=== PATIENT | female | born 1975 | race Caucasian/White ===

== ENCOUNTER 2017-02-16 11:03 | Emergency (ER) | payer MEDICAID ==
[2017-02-16 11:20] VITALS: BP 111/75
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
== END 2017-02-16 12:14 | disposition home or self-care (01) ==
LOC: ER 11:03
DX: S46.912A Strain of unspecified muscle, fascia and tendon at shoulder and upper arm level, left arm, initial encounter (principal); S46.002A Unspecified injury of muscle(s) and tendon(s) of the rotator cuff of left shoulder, initial encounter; X50.3XXA Overexertion from repetitive movements, initial encounter; Y93.E9 Activity, other interior property and clothing maintenance; Y92.009 Unspecified place in unspecified non-institutional (private) residence as the place of occurrence of the external cause

== ENCOUNTER 2017-05-31 06:37 | Day surgery (SDC) | payer MEDICAID ==
[~2017-05-31 06:37] MED LIST: ACETAMINOPHEN 500 MG TABLET PO PRN; HYDROmorphone HCL 2 MG/ML VIAL IV PRN; MAG HYDROX/ALUMINUM HYD/SIMETH 30 ML UDC PO PRN; MAGNESIUM HYDROXIDE 30 ML UDC PO PRN; ONDANSETRON HCL/PF 2 MG/ML VIAL IV PRN; PROMETHAZINE HCL 25 MG in DEXTROSE 5 % IN WATER 50 ML IV PRN; RINGER'S SOLUTION,LACTATED 1,000 ML IV PRN; ZOLPIDEM TARTRATE 5 MG TABLET PO PRN; ceFAZolin SODIUM 1 GM VIAL IV PRN; diphenhydrAMINE HCL 50 MG/ML VIAL IV PRN; oxyCODONE HCL/ACETAMINOPHEN 1 TAB TABLET PO PRN
[2017-05-31] MEDS ORDERED: RINGER'S SOLUTION,LACTATED 1,000 ML IV ONE ×2 (07:09→08:15)
--- NOTE | 2017-05-31 09:25 | OR ---
Operative Report - Dictated Report Narrative: Date: 05/31/2017 Physician: Néstor Reeder M.D. Rn Emergency Room: Harvey Zazueta PA-C Preoperative diagnosis: Left Shoulder labral tear, biceps tendinopathy Postoperative diagnosis: Left Shoulder anterior labral tear, biceps tendinopathy Procedure: Left shoulder arthroscopy with anterior labral repair and open biceps tenodesis Anesthesia: General plus regional Complications: None Estimated blood loss: Minimal Specimens: None Retained implants: [employer] biceptor 7 x 25 mm peek interference screw, [employer] 2.3 mm bio Raptor peek suture anchor 2 Drains: None Indications: Mrs. Hyatt Is a 41 year-old female who has been followed in my clinic with complaints of shoulder pain consistent anterior shoulder pain with labral and biceps pathology. Physical exam and diagnostic imaging were consistent with his complaints and concern for labral tear and biceps tendinopathy. Conservative measures have failed including, but not limited to, passage of time , activity modification, medications, physical therapy/home exercise program, or injections. The risks, benefits, and alternatives were discussed in clinic. The risks being , bleeding, infection, blood clots, nerve, tendon, ligament, blood vessel injury, persistent pain, arthrosis, stiffness, need for prolonged therapy, need for additional procedures, and persistent symptoms. Consent was obtained in the clinic. Procedure: After marking the correct extremity in the preoperative holding area, a timeout was performed in the operating room. IV antibiotics consisting of Ancef were administered prior to the procedure. A general followed by regional anesthetic was induced by the nurse counter waiter per my request. This was in the supine position, then the patient was transitioned to a beachchair position with all bony prominences well-padded, head in neutral, the nonoperative arm well supported, and the legs padded with SCDs in place. The operative shoulder was then prepped and draped in a standard sterile fashion. Preoperatively the shoulder had full passive range of motion, and no gross instability. After marking out the bony landmarks, saline was infused into the joint through a posterior lateral portal site. A baldev incision was made, and the blunt trocar and cannula was introduced into the shoulder joint. An accessory portal was placed in the rotator cuff interval using a spinal needle for guidance. Upon initial evaluation, the biceps tendon showed tendinopathy and the extra articular portion as well as a partial thickness tear as it inserted onto the labrum. The middle glenohumeral ligament was intact. Subscapularis tendon was thickened but intact. The glenoid showed no significant arthrosis. The humeral head articular surface showed no significant arthrosis. The anterior labrum was torn and retracted off the anterior aspect of the glenoid from approximately the 9:00 to 12:00 positions. The superior labrum was intact. The pouch was unremarkable. The posterior labrum was intact. The supraspinatus tendon was had a less than 10% thickness intra-articular partial- thickness tear. The infraspinatus tendon was unremarkable. Utilizing an accessory portal, the biceps was tagged and then released as it inserted on the labrum. We then turned our attention to the labrum and the labrum was elevated off the anterior aspect of the glenoid where it had scarred down. The anterior glenoid was debrided and shaved down to prepare the surface for labral repair. 2 bio Raptor anchors were placed at the 10 and 11:00 positions. Suture was then passed circumferentially and tied the knots away from the joint in order to repair the labrum over the anterior aspect of the glenoid. This resulted in improved stability and an improved anterior bumper. Attention was then turned to the subacromial space. Subacromial bursectomy was performed utilizing the prior portals. The coracoacromial ligament was intact. The bursal side of the rotator cuff demonstrated no significant tear. The acromial arch was unremarkable. Next attention was turned to the biceps tenodesis. We connected the 2 anterior portal sites and performed a deltoid split in order to expose the bicipital groove. The groove was opened and the biceps was mobilized out of the joint. The biceps groove was then rasped and prepared for tenodesis. A guidewire followed by a 7 mm acorn drill was utilized. The biceps was then mobilized into the hole and a 7 mm interference screw was placed securing the biceps and normal need attention. The small portion of extra biceps tendon was then excised and discarded. The wounds were then thoroughly irrigated. 0 Vicryl was utilized in order to repair the deltoid fascia. 3-0 Vicryl was placed in the subcutaneous tissue. The biceps incision as well as the portal sites were closed with interrupted nylon. Dressings consisting of Xeroform, 4 x 4, ABD, soft roll, and tape were applied. All sponge, needle, blade, and instrument counts were correct prior to closing the wounds. The patient was awoken and transferred to the postanesthesia care unit in stable condition.
--- NOTE | 2017-05-31 12:32 | OR ---
Anesthesia Procedure Note - Anesthesia Procedure Note Narrative: Vital Signs - Last Taken Temp 36.2 C L 05/31/17 11:58 Pulse 78 05/31/17 11:58 Resp 16 05/31/17 11:58 BP 109/67 05/31/17 11:58 Pulse Ox 100 05/31/17 11:58 O2 Oxygen Delivery Method Room Air 05/31/17 12:29 ANESTHESIA PROCEDURE NOTE Date of procedure: 05/31/2017. Time of procedure: . Performed by: Cole Hector CRNA Sound Equipment Mechanic: Teresa Byrd RN . Preprocedure diagnosis: Postoperative analgesia for left shoulder labral repair. Left shoulder labral tear. Post procedure diagnosis: Same. Procedure: Ultrasound-guided left interscalene nerve block Indications: Postoperative analgesia. Findings: Patient placed in a sitting position. Ultrasound used to identify brachial plexus. Nerve stimulator was also used. Muscle twitch elicited at 0.48 mV. A total of 35 mL of 0.5% Marcaine with epinephrine 1-200,000 was given via 22-gauge 2 inch Stimuplex regional block needle. ChloraPrep was used to prep the surface of the skin. One mL of 1% Xylocaine was infiltrated at the injection site. Images retained and radiology database. EBL: Minimal. Fluids: N/A. Specimen: N/A. Post procedure condition: The patient tolerated the procedure well. No complications were noted. Thank you for this consultation Cole Hector CRNA
[2017-05-31 16:34] VITALS: BP 109/67
[2017-05-31] MEDS ORDERED: SENNOSIDES/DOCUSATE SODIUM 1 TAB TABLET PO SCH (21:00)
== END 2017-05-31 06:38 | disposition home or self-care (01) ==
LOC: AMB 06:37
PROVIDERS: ATTEND Orthopaedic Surgery
PROC: 0LS40ZZ Reposition Left Upper Arm Tendon, Open Approach (ICD-10-PCS; 2017-05-31)
PROC: 3E0T3BZ Introduction of Anesthetic Agent into Peripheral Nerves and Plexi, Percutaneous Approach (ICD-10-PCS; 2017-05-31)
PROC: 0MM24ZZ Reattachment of Left Shoulder Bursa and Ligament, Percutaneous Endoscopic Approach (ICD-10-PCS; principal; 2017-05-31 08:00)
DX: S43.431A Superior glenoid labrum lesion of right shoulder, initial encounter (principal); M75.22 Bicipital tendinitis, left shoulder; J45.20 Mild intermittent asthma, uncomplicated; F41.1 Generalized anxiety disorder; E66.01 Morbid (severe) obesity due to excess calories; Z68.34 Body mass index [BMI] 34.0-34.9, adult